=== PATIENT | female | born 1970 ===

== ENCOUNTER 2024-10-18 10:01 | Outpatient (CLI) | payer OTHER | END 2024-10-18 10:05 | disposition home or self-care (01) | LOC: SONOGRAMA 10:01 | PROVIDERS: ATTEND Pathology Anatomic Pathology & Clinical Pathology | DX: E04.1 Nontoxic single thyroid nodule (principal); D34 Benign neoplasm of thyroid gland; E06.3 Autoimmune thyroiditis; E07.89 Other specified disorders of thyroid; D44.0 Neoplasm of uncertain behavior of thyroid gland ==

== ENCOUNTER 2025-01-14 10:04 | Outpatient (CLI) | payer OTHER | END 2025-01-14 10:13 | disposition home or self-care (01) | LOC: SONOGRAMA 10:04 | PROVIDERS: ATTEND Pathology Anatomic Pathology & Clinical Pathology | DX: D44.0 Neoplasm of uncertain behavior of thyroid gland (principal); E04.1 Nontoxic single thyroid nodule ==